=== PATIENT | female | born 1940 | race Caucasian/White ===

== ENCOUNTER 2017-03-09 22:03 | Inpatient (IN) | payer OTHER ==
[~2017-03-09] VITALS: Ht 167.6 cm; Wt 94.0 kg
[2017-03-09 22:50] LABS: EOSINOPHIL COUNT 0.1 K/uL (0-0.3); HEMATOCRIT 32.2 % (36.0-46.0); IMMATURE GRANULOCYTE (%) 0.4 % (0.0-0.7); INSTRUMENT ABS NEUTROPHIL CT 5.6 K/uL; LYMPHOCYTE COUNT 1.1 K/uL (1.0-2.8); MCH 28.1 PG (29.0-34.0); MCHC 32.3 G/DL (30.0-36.0); MEAN PLAT.VOLUME 9.3 uM^3 (9.5-12.4); MONOCYTE (%) 6.8 % (3-12); MONOCYTE COUNT 0.5 K/uL (0-0.8); NEUTROPHIL (%) 76.6 % (45-76); NEUTROPHIL COUNT 5.6 K/uL (1.8-6.4); PLATELET COUNT 234 K/uL (156-360); RBC DIS.WIDTH-CV 13.5 % (11.8-14.6); WHITE BLOOD COUNT 7.3 K/uL (4.1-10.2)
[2017-03-09 23:04] LABS: CHLORIDE 102 mEq/L (99-109); POTASSIUM 3.5 mEq/L (3.7-5.4); SODIUM 136 mEq/L (136-147)
[2017-03-09 23:05] LABS: MAGNESIUM 1.6 mg/dL (1.3-2.7)
[2017-03-09 23:06] LABS: GLUCOSE 115 mg/dL (70-99)
[2017-03-09 23:07] LABS: ANION GAP 15 MEQ/L (2-14)
[2017-03-09 23:10] LABS: GFR ESTIMATE (CALCULATED) 33 mL/min/
[2017-03-09 23:11] LABS: UREA NITROGEN (BUN) 42 mg/dL (9-23)
[2017-03-09 23:14] LABS: TROP-I INTERPRETATION NEGATIVE; TROPONIN-I 0.02 ng/mL (0.0-0.30)
[2017-03-09] MEDS ORDERED: COREG12.5 M1 PO (23:45)
[2017-03-09] MEDS ORDERED: DEMADEX20 MG PO (23:45)
[2017-03-09] MEDS ORDERED: TRAMADOL HCL50 MG PO (23:45)
[2017-03-09] MEDS ORDERED: LEXAPRO10 MG PO (23:45)
[2017-03-09] MEDS ORDERED: VERAPAMIL HCL240 MG PO (23:45)
[2017-03-09] MEDS ORDERED: ALLOPURINOL100 MG PO (23:45)
[2017-03-09] MEDS ORDERED: ELIQUIS5 MG PO (23:45)
[2017-03-09] MEDS ORDERED: B-COMPLEX-VITA1 EACH PO (23:46)
[2017-03-09] MEDS ORDERED: VITAMIN B-122000 MC1 PO (23:46)
[2017-03-09] MEDS ORDERED: ACIDOPHILUS1 EAC3 PO (23:46)
[2017-03-09] MEDS ORDERED: ANTIBIOTIC PO (23:47)
[2017-03-10 03:19] VITALS: BP 136/87
[2017-03-10 06:14] LABS: INTER. NORMALIZED RATIO 1.4; PROTHROMBIN TIME 15.8 SEC (10.2-12.9)
[2017-03-10 06:16] LABS: PTT 30.3 SEC (25-37)
[2017-03-10 07:04] LABS: ADD MIUA? YES; BILIRUBIN NEGATIVE; BLOOD SMALL; COLOR STRAW ((YELLOW)); GLUCOSE (STRIP) NEGATIVE; KETONES NEGATIVE; LEUKOCYTES NEGATIVE; NITRITE NEGATIVE; PROTEIN (STRIP) 100; SPECIFIC GRAVITY 1.005 (1.000-1.030); UROBILINOGEN 0.2 MG/DL (0.2-1.0)
[2017-03-10 07:08] LABS: BACTERIA NONE SEEN /HPF; EPITHELIAL CELLS RARE /HPF; MUCUS NONE SEEN /LPF; RED BLOOD CELLS 0-5 /HPF (0-5); UCUL ADDED? NO; WHITE BLOOD CELLS 0-5 /HPF (0-5)
[2017-03-10 07:17] VITALS: BP 134/64
[2017-03-10 09:12] LABS: EOSINOPHIL (%) 1.1 % (0-5); EOSINOPHIL COUNT 0.1 K/uL (0-0.3); HEMATOCRIT 30.8 % (36.0-46.0); IMMATURE GRANULOCYTE (%) 0.7 % (0.0-0.7); INSTRUMENT ABS NEUTROPHIL CT 4.4 K/uL; LYMPHOCYTE COUNT 0.8 K/uL (1.0-2.8); MCH 29.3 PG (29.0-34.0); MCHC 33.4 G/DL (30.0-36.0); MCV 87.7 FL (83-99); MEAN PLAT.VOLUME 9.8 uM^3 (9.5-12.4); MONOCYTE (%) 6.9 % (3-12); MONOCYTE COUNT 0.4 K/uL (0-0.8); NEUTROPHIL COUNT 4.4 K/uL (1.8-6.4); PLATELET COUNT 248 K/uL (156-360); RBC DIS.WIDTH-CV 13.8 % (11.8-14.6); RBC DIS.WIDTH-SD 44.1 % (39-53); RED BLOOD COUNT 3.51 M/uL (3.80-5.20); WHITE BLOOD COUNT 5.7 K/uL (4.1-10.2)
[2017-03-10 09:32] LABS: TROP-I INTERPRETATION NEGATIVE; TROPONIN-I 0.03 ng/mL (0.0-0.30)
[2017-03-10 09:52] LABS: ANION GAP 8 MEQ/L (2-14); CHLORIDE 100 MEQ/L (99-109); GFR ESTIMATE (CALCULATED) 36 mL/min/; GLUCOSE 126 mg/dL (70-99); POTASSIUM 3.3 MEQ/L (3.7-5.4); SAMPLE HEMOLYSIS CHECK 0; SAMPLE ICTERIC CHECK 0; SAMPLE LIPEMIA CHECK 0; SODIUM 133 MEQ/L (136-147); UREA NITROGEN (BUN) 36 mg/dL (9-23)
[2017-03-10] MEDS ORDERED: KEFLEX500 MG PO (11:15)
[2017-03-10 11:25] VITALS: BP 126/59
[2017-03-10] MEDS ORDERED: DEMADEX20 MG PO (15:06)
[2017-03-10] MEDS ORDERED: K-DUR20 MEQ PO (15:10)
== END 2017-03-10 16:42 | disposition home or self-care (01) | DRG 292 ==
LOC: EME 22:03 → EDBD 22:03 → EDOF 03-10 02:15 → ENRESERV 03-10 02:18 → 4EAST 03-10 03:08
PROVIDERS: Emergency Medicine; Hospitalist; Internal Medicine Cardiovascular Disease; Student in an Organized Health Care Education/Training Program
DX: I13.0 Hypertensive heart and chronic kidney disease with heart failure and stage 1 through stage 4 chronic kidney disease, or unspecified chronic kidney disease (principal); N18.4 Chronic kidney disease, stage 4 (severe); J98.11 Atelectasis; Z87.891 Personal history of nicotine dependence; I42.9 Cardiomyopathy, unspecified; Z82.49 Family history of ischemic heart disease and other diseases of the circulatory system; I50.9 Heart failure, unspecified; I48.0 Paroxysmal atrial fibrillation
CPT/HCPCS: 71010; 80048; 81003; 83605; 83735; 83880; 84439; 84443; 84484; 85025; 85610; 85730; 87040; 93005; 94799; 99202; 99281; 99285; J0696; J1940; J3475; J7050